=== PATIENT | female | born 1980 | race Asian ===

== ENCOUNTER → 2020-06-23 | Outpatient (CLI) | payer BC ==
[2020-06-23 14:35] LABS: GAMMA GLUTAMYL TRANSPEPTIDASE 13 U/L (7-64)
== END ==
LOC: LAB 12:53
PROVIDERS: Dermatology
DX: L70.9 Acne, unspecified (principal)
CPT/HCPCS: 36415; 82465; 82977; 84478

== ENCOUNTER → 2021-11-03 | Outpatient (CLI) | payer BC | LOC: CT 07:42 | DX: R31.0 Gross hematuria (principal); N20.0 Calculus of kidney | CPT/HCPCS: Q9967 ==